=== PATIENT | male | born 1945 | race Caucasian/White ===

== ENCOUNTER → 2019-06-10 | Outpatient (CLI) | payer MEDICARE, BC | END | disposition home or self-care (01) | LOC: CVU 14:36 | PROVIDERS: ATTEND Internal Medicine Cardiovascular Disease | DX: I65.23 Occlusion and stenosis of bilateral carotid arteries (principal); I08.3 Combined rheumatic disorders of mitral, aortic and tricuspid valves; I25.10 Atherosclerotic heart disease of native coronary artery without angina pectoris; I11.9 Hypertensive heart disease without heart failure | CPT/HCPCS: 93306; 93880 ==

== ENCOUNTER → 2019-06-23 | Outpatient (CLI) | payer MEDICARE, BC ==
[~2019-06-23] MED LIST: REGADENOSON 0.4 MG/5 ML SYRINGE ONE
== END | disposition home or self-care (01) ==
LOC: CFH 12:03
PROVIDERS: ATTEND Internal Medicine Cardiovascular Disease
DX: I65.23 Occlusion and stenosis of bilateral carotid arteries (principal); I10 Essential (primary) hypertension
CPT/HCPCS: 78452; 93017; A9502; J2785

== ENCOUNTER 2019-12-28 06:10 | Observation (INO) | payer MEDICARE, BC ==
[~2019-12-28] VITALS: Ht 182.9 cm; Wt 71.1 kg
[2019-12-28] MEDS ORDERED: SODIUM CHLORIDE 0.9% 1,000 ML IV SCH (06:33)
[2019-12-28 07:04] LABS: BASOPHILS # (AUTO) 0.08 x10^3/uL (0-0.1); BASOPHILS % (AUTO) 1 % (0-1); EOSINOPHILS # (AUTO) 0.39 x10^3/uL (0-0.4); EOSINOPHILS % (AUTO) 5 % (1-7); LYMPHOCYTES # (AUTO) 0.96 x10^3/uL (1-3.4); LYMPHOCYTES % (AUTO) 13 % (22-44); MD NO; MEAN CORPUSCULAR VOLUME 94.1 fL (81-97); MEAN PLATELET VOLUME 8.8 fL (7.4-10.4); MONOCYTES # (AUTO) 0.92 x10^3/uL (0.2-0.8); MONOCYTES % (AUTO) 13 % (2-9); NEUTROPHILS # (AUTO) 4.88 x10^3/uL (1.8-6.8); NEUTROPHILS % (AUTO) 68 % (42-75); PLATELET COUNT 253 x10^3/uL (130-400); RED BLOOD COUNT 3.64 x10^6/uL (4.38-5.82); RED CELL DISTRIBUTION WIDTH 15.5 % (9.4-14.8)
[2019-12-28 07:16] LABS: ANION GAP 4 mmol/L (5-15); CALCIUM 8.7 mg/dL (8.5-10.1); CHLORIDE 105 mmol/L (98-107)
[2019-12-28] MEDS ORDERED: DOCU-180 PO (07:17)
[2019-12-28] MEDS ORDERED: IRON1TAB60 PO (07:17)
[2019-12-28] MEDS ORDERED: LOSA100T14 PO (07:17)
[2019-12-28] MEDS ORDERED: ASPI81TA45 PO (07:17)
[2019-12-28] MEDS ORDERED: AMLO-150 PO (07:17)
[2019-12-28] MEDS ORDERED: NEBI5TAB3 PO (07:17)
[2019-12-28] MEDS ORDERED: ATOR-2 PO (07:17)
[2019-12-28] MEDS ORDERED: MIDAZOLAM 1 MG/ML, 5ML ONE (07:21)
[2019-12-28] MEDS ORDERED: FENTANYL PF 100 MCG/2ML ONE (07:22)
[2019-12-28] MEDS ORDERED: CEFAZOLIN 1,000 MG ONE (07:22)
[2019-12-28] MEDS ORDERED: CEFAZOLIN PMX 1GM/50ML 50 ML ONE (07:22)
[2019-12-28] MEDS ORDERED: LIDOCAINE 2%, 20ML ONE (07:22)
[2019-12-28] MEDS ORDERED: FENTANYL PF 250 MCG/5ML ONE (07:23)
[2019-12-28] MEDS ORDERED: CEFAZOLIN PMX 1GM/50ML 50 ML IVPB SCH (09:00)
[2019-12-28] MEDS ORDERED: ACETAMINOPHEN 325 MG TABLET PO PRN (09:00)
[2019-12-28] MEDS ORDERED: HOLD MEDICATION MC PRN (09:00)
[2019-12-28] MEDS: DOCUSATE 100 MG CAPSULE PO SCH (11:45)
[2019-12-28] MEDS: LOSARTAN 100 MG TAB PO SCH (11:45)
[2019-12-28] MEDS: SODIUM CHLORIDE FLUSH 10ML SYR IVF SCH ×2 (11:45→19:44)
[2019-12-28] MEDS: NEBIVOLOL HCL 5 MG TABLET PO SCH (11:45)
[2019-12-28] MEDS: ASPIRIN 81 MG TABLET EC PO SCH (11:46)
[2019-12-28] MEDS: MULTIVITAMINS WITH IRON TABLET PO SCH (11:46)
[2019-12-28] MEDS: AMLODIPINE 5 MG TABLET PO SCH ×2 (11:46→19:44)
[2019-12-28 12:43] VITALS: BP 158/93
[2019-12-28 19:41] VITALS: BP 174/86
[2019-12-28] MEDS: ATORVASTATIN 80 MG TABLET PO SCH ×2 (19:44→19:45)
[2019-12-28 21:10] VITALS: BP 174/94
[2019-12-28 22:02] VITALS: BP 168/93
[2019-12-29 01:36] VITALS: BP 164/96
[2019-12-29 06:45] VITALS: BP 166/91
[2019-12-29] MEDS: DOCUSATE 100 MG CAPSULE PO SCH (07:38)
[2019-12-29] MEDS: LOSARTAN 100 MG TAB PO SCH (07:54)
[2019-12-29] MEDS: ASPIRIN 81 MG TABLET EC PO SCH (07:54)
[2019-12-29] MEDS: NEBIVOLOL HCL 5 MG TABLET PO SCH (07:54)
[2019-12-29] MEDS: MULTIVITAMINS WITH IRON TABLET PO SCH (07:54)
[2019-12-29] MEDS: AMLODIPINE 5 MG TABLET PO SCH (07:54)
[2019-12-29] MEDS: SODIUM CHLORIDE FLUSH 10ML SYR IVF SCH (07:54)
[2019-12-29] MEDS ORDERED: ACET325T26 PO (08:28)
[2019-12-29] MEDS ORDERED: CEPH250T PO (08:28)
[2019-12-29] MEDS ORDERED: CEFAZOLIN PMX 1GM/50ML 50 ML IV ONE (08:30)
== END 2019-12-29 13:30 | disposition home or self-care (01) ==
LOC: CACL 06:10 → 5SO 09:50 → CACL 20:11 → 5SO 20:55 → DCLOUNGE 12-29 13:20
PROVIDERS: ADMIT Internal Medicine Cardiovascular Disease; ATTEND Internal Medicine Cardiovascular Disease
DX: I44.2 Atrioventricular block, complete (principal); I10 Essential (primary) hypertension; E78.5 Hyperlipidemia, unspecified; G45.9 Transient cerebral ischemic attack, unspecified; N28.9 Disorder of kidney and ureter, unspecified; I45.10 Unspecified right bundle-branch block; R00.1 Bradycardia, unspecified; D64.9 Anemia, unspecified; F12.10 Cannabis abuse, uncomplicated; Z86.73 Personal history of transient ischemic attack (TIA), and cerebral infarction without residual deficits; Z79.82 Long term (current) use of aspirin; Z79.899 Other long term (current) drug therapy
CPT/HCPCS: 33208; 36415; 71045; 80048; 85025; 93005; 96361; 96365; 99156; 99157; C1779; C1785; C1892; G0378; J0690; J2250; J3010; J3490; J7030

== ENCOUNTER 2020-08-29 06:08 | Day surgery (SDC) | payer MEDICARE, BC ==
[~2020-08-29] VITALS: Ht 177.8 cm; Wt 69.8 kg
[~2020-08-29 06:08] MED LIST changes: +ACET325T26 PO; +AMLO-150 PO; +ASPI81TA45 PO; +ATOR-2 PO; +CEPH250T PO; +DOCU-180 PO; +IRON1TAB60 PO; +LOSA100T14 PO; +NEBI5TAB3 PO; -REGADENOSON 0.4 MG/5 ML SYRINGE ONE
[2020-08-29] MEDS ORDERED: SODIUM CHLORIDE 0.9% 1,000 ML IV SCH (06:30)
[2020-08-29] MEDS ORDERED: FERR324T5 PO (06:50)
[2020-08-29] MEDS ORDERED: SODIUM CHLORIDE 0.9% 1,000 ML IV ONE (07:00)
[2020-08-29 07:04] VITALS: BP 148/87
[2020-08-29] MEDS ORDERED: LIDOCAINE 2%, 20ML ONE (07:12)
[2020-08-29] MEDS ORDERED: ISOPROTERENOL 0.2MG/ML, 5ML ONE (07:12)
[2020-08-29] MEDS ORDERED: MIDAZOLAM 1 MG/ML, 5ML ONE (07:12)
[2020-08-29] MEDS ORDERED: FENTANYL PF 100 MCG/2ML ONE ×2 (07:12→08:21)
[2020-08-29 07:46] LABS: ANION GAP 7 mmol/L (5-15); BASOPHILS % (AUTO) 1 % (0-1); CALCIUM 8.9 mg/dL (8.5-10.1); CHLORIDE 102 mmol/L (98-107); CREATININE 1.36 mg/dL (0.7-1.3); EOSINOPHILS % (AUTO) 2 % (1-7); LYMPHOCYTES % (AUTO) 11 % (22-44); MEAN CORPUSCULAR HEMOGLOBIN 31.4 pg (27.5-34.5); MEAN PLATELET VOLUME 8.6 fL (7.4-10.4); MONOCYTES % (AUTO) 8 % (2-9); NEUTROPHILS % (AUTO) 78 % (42-75); PLATELET COUNT 215 x10^3/uL (130-400); RED BLOOD COUNT 3.05 x10^6/uL (4.38-5.82); RED CELL DISTRIBUTION WIDTH 14.1 % (9.4-14.8)
[2020-08-29 07:48] LABS: MD NO
[2020-08-29] MEDS ORDERED: MIDAZOLAM 1 MG/ML, 2ML ONE (08:21)
[2020-08-29] MEDS ORDERED: LOSARTAN 100 MG TAB PO SCH (09:00)
[2020-08-29] MEDS ORDERED: ASPIRIN 81 MG TABLET EC PO SCH (09:00)
[2020-08-29] MEDS ORDERED: DOCUSATE 100 MG CAPSULE PO SCH (09:00)
[2020-08-29] MEDS ORDERED: NEBIVOLOL HCL 5 MG TABLET PO SCH (09:00)
[2020-08-29] MEDS ORDERED: AMLODIPINE 5 MG TABLET PO SCH (09:00)
[2020-08-29] MEDS ORDERED: TEMPLATE NON-FORMULARY MED. (Ferrous Sulfate** 324 MG) PO SCH (09:00)
[2020-08-29] MEDS ORDERED: ATORVASTATIN 80 MG TABLET PO SCH (21:00)
== END 2020-08-29 13:37 | disposition home or self-care (01) ==
LOC: CACL 06:08
PROVIDERS: ATTEND Internal Medicine Cardiovascular Disease
DX: I48.92 Unspecified atrial flutter (principal); I48.91 Unspecified atrial fibrillation; I08.1 Rheumatic disorders of both mitral and tricuspid valves; I10 Essential (primary) hypertension; E78.5 Hyperlipidemia, unspecified; Z20.822 Contact with and (suspected) exposure to COVID-19; Z79.82 Long term (current) use of aspirin; Z79.899 Other long term (current) drug therapy; Z95.0 Presence of cardiac pacemaker; Z96.652 Presence of left artificial knee joint
CPT/HCPCS: 36415; 80048; 85025; 87635; 93312; 93321; 93325; 93613; 93621; 93653; 99156; 99157; C1730; C1894; C2630; J2250; J3010

== ENCOUNTER → 2020-12-18 | Outpatient (CLI) | payer MEDICARE, BC ==
[~2020-12-18] MED LIST changes: -DOCU-180 PO; +DOCU-192 PO; +FERR324T5 PO; +OMNIPAQUE 350 MG/ML, 100ML BOTTLE ONE
[2020-12-18 12:39] LABS: CREATININE 1.58 mg/dL (0.7-1.3)
== END | disposition home or self-care (01) ==
LOC: RAD 11:18
PROVIDERS: ATTEND Internal Medicine
DX: M51.36 Other intervertebral disc degeneration, lumbar region (principal); D64.9 Anemia, unspecified; D50.0 Iron deficiency anemia secondary to blood loss (chronic)
CPT/HCPCS: 36415; 74177; 82565; Q9967

== ENCOUNTER 2021-01-16 11:04 | Outpatient (CLI) | payer MEDICARE, BC ==
[~2021-01-16 11:04] MED LIST changes: -OMNIPAQUE 350 MG/ML, 100ML BOTTLE ONE
== END 2021-01-16 23:59 | disposition home or self-care (01) ==
LOC: CFH 11:04
PROVIDERS: ATTEND Nurse Practitioner
DX: I70.0 Atherosclerosis of aorta (principal); Z87.891 Personal history of nicotine dependence
CPT/HCPCS: 76706

== ENCOUNTER 2021-01-19 12:48 | Outpatient (CLI) | payer MEDICARE, BC ==
[2021-01-19] MEDS ORDERED: OMNIPAQUE 350 MG/ML, 100ML BOTTLE ONE (14:01)
== END 2021-01-19 23:59 | disposition home or self-care (01) ==
LOC: CFH 12:48
PROVIDERS: ATTEND Nurse Practitioner Family
DX: D50.0 Iron deficiency anemia secondary to blood loss (chronic) (principal)
CPT/HCPCS: 74177; Q9967